=== PATIENT | male | born 1970 | race Caucasian/White ===

== ENCOUNTER 2021-05-10 10:21 | Emergency (ER) | payer SELFPAY ==
[2021-05-10] MEDS ORDERED: Tetracaine HCl/PF 0.5% 4 ML Bottle EYEBOTH ONE (10:28)
[2021-05-10] MEDS ORDERED: Fluorescein 1 MG Ophth Strip EYERT ONE (10:29)
--- NOTE | 2021-05-10 11:08 | EDM.PDOC ---
ED HPI GENERAL MEDICAL PROBLEM - General Chief Complaint: Eye Problems Stated Complaint: SOMETHING IN RIGHT EYE Time Seen by Provider: 05/10/21 10:35 Source of Information: Reports: Patient History Limitations: Reports: No Limitations - History of Present Illness INITIAL COMMENTS - FREE TEXT/NARRATIVE: This 50 yo male patient reports to the ED from the [facility] due to julita ething in his right eye. The patient is at [employer] and was working with metal and PVC over the past several days. The patient noticed some irritation to his eye and had been flushing the eye. Initially, the patient reports he thought he got everything out, but just prior to arrival the patient could feels something in his eye again. Duration: Day(s):, Constant Location: Reports: Face (Right eye) Quality: Reports: Ache Severity: Moderate Improves with: Reports: None Worsens with: Reports: None Context: Reports: Activity Associated Symptoms: Reports: No Other Symptoms - Related Data Allergies Allergy/AdvReac Type Severity Reaction Status Date / Time No Known Allergies Allergy Verified 05/10/21 10:31 Home Meds: Home Meds Aspirin [Aspirin EC] 81 mg PO DAILY 05/10/21 [History] Metoprolol Tartrate 50 mg PO DAILY 05/10/21 [History] Ticagrelor [Brilinta] 60 mg PO 05/10/21 [History] amLODIPine [Norvasc] 5 mg PO DAILY 05/10/21 [History] atorvaSTATin [Lipitor] 20 mg PO DAILY 05/10/21 [History] carvediloL [Coreg] 3.125 mg PO BID 05/10/21 [History] Past Medical History HEENT History: Reports: None Cardiovascular History: Reports: Hypertension, [place] Respiratory History: Reports: None Gastrointestinal History: Reports: None Genitourinary History: Reports: None Neurological History: Reports: None Psychiatric History: Reports: None Endocrine/Metabolic History: Reports: None Hematologic History: Reports: None Immunologic History: Reports: None Oncologic (Cancer) History: Reports: None Dermatologic History: Reports: None - Infectious Disease History Infectious Disease History: Reports: None - Past Surgical History Head Surgeries/Procedures: Reports: None HEENT Surgical History: Reports: Adenoidectomy, Tonsillectomy, Other (See Below) Other HEENT Surgeries/Procedures: UP Musculoskeletal Surgical History: Reports: Shoulder Surgery, Other (See Below) Other Musculoskeletal Surgeries/Procedures:: CANDACE shoulder surgery Social & Family History - Family History Family Medical History: No Pertinent Family History - Tobacco Use Tobacco Use Status *Q: Heavy Tobacco User Years of Tobacco use: 32 Packs/Tins Daily: 1 - Caffeine Use Caffeine Use: Reports: Coffee - Recreational Drug Use Recreational Drug Use: No ED ROS GENERAL - Review of Systems Review Of Systems: Comprehensive ROS is negative, except as noted in HPI. ED EXAM GENERAL W FULL EYE - Physical Exam Exam: See Below Exam Limited By: No Limitations General Appearance: Alert, WD/WN, No Apparent Distress Eye Exam: Bilateral Eye: Conjunctival Injection, PERRL Eyelids: Right: Foreign Body (lateral eye (5 white foreign bodies identified)) Conjunctiva & Sclera: Bilateral: Normal Appearance Cornea Exam: Bilateral: Normal Appearance Pupils: Normal Accommodation Pupillary Size: Bilateral: 5 mm Pupillary Reaction: Bilateral: Brisk Anterior Chamber: Bilateral: Normal Appearance Ears: Normal External Exam, Normal Canal, Hearing Grossly Normal, Normal TMs Nose: Normal Inspection, Normal Mucosa, No Blood Throat/Mouth: Normal Inspection, Normal Lips, Normal Teeth, Normal Gums, Normal Oropharynx, Normal Voice, No Airway Compromise Head: Atraumatic, Normocephalic Neck: Full Range of Motion Respiratory/Chest: No Respiratory Distress, Normal Breath Sounds, No Accessory Muscle Use, Chest Non-Tender Cardiovascular: Normal Peripheral Pulses, Regular Rate, Rhythm Back Exam: Normal Inspection, Full Range of Motion, NT ED EYE w/ Add Procedure - Eye Procedure Alcaine Drops Administered: Yes Eye FB Removal: Removal w/ Needle Cyclogel 2 Drops Administered: Right Eye Progress: No ointment available in the ED. The patient was discharged with a script. The 5 different foreign bodies were removed without incident during the visit using both the eye spud and an alligator forceps. Course - Vital Signs Last Recorded V/S: Last Vital Signs Temp 97.9 F 05/10/21 10:31 Pulse 76 05/10/21 10:31 Resp 18 05/10/21 10:31 BP 201/110 H 05/10/21 10:31 Pulse Ox 100 05/10/21 10:31 - Orders/Labs/Meds Meds: Medications Discontinued Medications Generic Name Dose Route Start Last Admin Trade Name Freq PRN Reason Stop Dose Admin Fluorescein Sodium 1 mg 05/10/21 10:29 05/10/21 10:34 Fluorescein 1 Mg Ophth Strip EYERT 05/10/21 10:30 1 mg ONETIME ONE Administration Gentamicin Sulfate 1 gm 05/10/21 10:58 05/10/21 11:20 Gentamicin 0.3% Ophth Oint 3.5 Gm Tube EYERT 05/10/21 10:59 Not Given ONETIME ONE Tetracaine HCl 2 ml 05/10/21 10:28 05/10/21 10:34 Tetracaine Hcl/Pf 0.5% 4 Ml Bottle EYEBOTH 05/10/21 10:29 1 applic ASDIRECTED ONE Administration Departure - Departure Time of Disposition: 10:59 Disposition: Home, Self-Care 01 Condition: Fair Clinical Impression: Foreign body of right eyelid - Discharge Information *PRESCRIPTION DRUG MONITORING PROGRAM REVIEWED*: Not Applicable *COPY OF PRESCRIPTION DRUG MONITORING REPORT IN PATIENT MICHELLE: Not Applicable Forms: ED Department Discharge Care Plan Goals: The patient was advised of the examination results during the visit. There were 5 white foreign bodies removed from the patient's right lateral eyelids (upper and lower) during the visit. The patient was discharged with a script for Gentak Ophthalmic Ointment to apply a 1/4 inch ribbon to the right eye 3 times per day for 7 days. If the patient has any additional symptoms or concerns, the patient should either return to the emergency department or visit his primary care facility. Sepsis Event Note (ED) - Evaluation Sepsis Screening Result: No Definite Risk - Focused Exam Vital Signs: Vital Signs Temp Pulse Resp BP Pulse Ox 05/10/21 10:31 97.9 F 76 18 201/110 H 100
== END 2021-05-10 11:20 | disposition home or self-care (01) ==
LOC: DL.ED 10:21
DX: T15.11XA Foreign body in conjunctival sac, right eye, initial encounter (principal); I10 Essential (primary) hypertension; I25.2 Old myocardial infarction; Z72.0 Tobacco use; Z79.82 Long term (current) use of aspirin; Z79.899 Other long term (current) drug therapy
CPT/HCPCS: 67938; 99283-25